=== PATIENT | male | born 1950 ===

== ENCOUNTER 2017-04-14 09:00 | Outpatient (CLI) | payer OTHER ==
[~2017-04-14 09:00] MED LIST: ARICEPT5 MG PO; ASA81 MG PO; CRESTOR20 MG PO; GABAPENTIN100 MG PO; LIPITOR20 MG PO; METAMUCIL0.52 G PO; ORPH100T PO; PERCOCET 5/3251 TAB PO; PROSCAR5 MG PO; VIT BALANCED B-1 TAB PO; XARELTO10 MG PO
== END 2017-04-14 09:15 | disposition home or self-care (01) ==
LOC: LAB 09:00
DX: R97.21 Rising PSA following treatment for malignant neoplasm of prostate (principal)

== ENCOUNTER 2017-05-10 14:27 | Emergency (ER) | payer OTHER ==
[~2017-05-10] VITALS: Ht 167.6 cm; Wt 63.5 kg
== END 2017-05-10 17:14 | disposition home or self-care (01) ==
LOC: ER 14:27
DX: R42 Dizziness and giddiness (principal)

== ENCOUNTER 2017-05-16 07:03 | Outpatient (CLI) | payer OTHER | END 2017-05-16 07:09 | disposition home or self-care (01) | LOC: LAB 07:03 | DX: R97.21 Rising PSA following treatment for malignant neoplasm of prostate (principal); R35.0 Frequency of micturition ==

== ENCOUNTER 2017-05-20 06:44 | Outpatient (CLI) | payer OTHER | END 2017-05-20 07:03 | disposition home or self-care (01) | LOC: LAB 06:44 | DX: D64.89 Other specified anemias (principal); E78.2 Mixed hyperlipidemia; E03.8 Other specified hypothyroidism; N39.0 Urinary tract infection, site not specified; K92.1 Melena; E55.9 Vitamin D deficiency, unspecified; M19.90 Unspecified osteoarthritis, unspecified site ==

== ENCOUNTER 2017-05-23 11:32 | Outpatient (CLI) | payer OTHER | END 2017-05-23 11:58 | disposition home or self-care (01) | LOC: LAB 11:32 | DX: D64.89 Other specified anemias (principal); E78.2 Mixed hyperlipidemia; E03.8 Other specified hypothyroidism; N39.0 Urinary tract infection, site not specified; K92.1 Melena; E55.9 Vitamin D deficiency, unspecified; M19.90 Unspecified osteoarthritis, unspecified site ==

== ENCOUNTER 2017-05-25 07:21 | Outpatient (CLI) | payer OTHER | END 2017-05-25 15:55 | disposition home or self-care (01) | LOC: NUCLEAR 07:21 | DX: M79.651 Pain in right thigh (principal) ==

== ENCOUNTER 2017-05-25 08:19 | Outpatient (CLI) | payer OTHER | END 2017-05-25 08:31 | disposition home or self-care (01) | LOC: TOM 08:19 | DX: M79.651 Pain in right thigh (principal); M79.652 Pain in left thigh ==

== ENCOUNTER → 2017-05-28 | Outpatient (CLI) | payer OTHER | END | disposition home or self-care (01) | LOC: PPH VACUNA 08:39 | DX: Z23 Encounter for immunization (principal) ==

== ENCOUNTER 2017-05-30 08:32 | Outpatient (CLI) | payer OTHER | END 2017-05-30 09:00 | disposition home or self-care (01) | LOC: NUCLEAR 08:32 | DX: M79.651 Pain in right thigh (principal) | CPT/HCPCS: 78802; A9556 ==

== ENCOUNTER 2017-12-07 13:37 | Outpatient (CLI) | payer OTHER | END 2017-12-07 17:11 | disposition home or self-care (01) | LOC: LAB 13:37 → MRI 12-12 10:15 | DX: M54.89 Other dorsalgia (principal); Z51.81 Encounter for therapeutic drug level monitoring ==

== ENCOUNTER 2017-12-12 09:30 | Outpatient (CLI) | payer OTHER | END 2017-12-12 13:52 | disposition home or self-care (01) | LOC: MRI 09:30 | DX: M54.89 Other dorsalgia (principal) | CPT/HCPCS: 72158 ==

== ENCOUNTER 2018-01-30 03:06 | Emergency (ER) | payer OTHER ==
[~2018-01-30] VITALS: Ht 167.6 cm; Wt 65.8 kg
[2018-01-30] MEDS ORDERED: NEURONTIN300 MG (03:27)
== END 2018-01-30 13:37 | disposition home or self-care (01) ==
LOC: ER 03:06 → CPU-OBS 03:12 → ER 13:37
DX: R07.89 Other chest pain (principal); R10.13 Epigastric pain
CPT/HCPCS: G0378; G0379; 93005

== ENCOUNTER 2018-05-09 09:53 | Outpatient (CLI) | payer OTHER ==
[~2018-05-09 09:53] MED LIST changes: +NEURONTIN300 MG
== END 2018-05-09 15:00 | disposition home or self-care (01) ==
LOC: RAD 09:53
DX: M54.2 Cervicalgia (principal)

== ENCOUNTER 2018-09-14 07:14 | Outpatient (CLI) | payer OTHER | END 2018-09-14 15:00 | disposition home or self-care (01) | LOC: LAB 07:14 | DX: D64.89 Other specified anemias (principal); E78.2 Mixed hyperlipidemia; E03.8 Other specified hypothyroidism; N40.0 Benign prostatic hyperplasia without lower urinary tract symptoms ==

== ENCOUNTER 2018-10-06 07:19 | Outpatient (CLI) | payer OTHER | END 2018-10-06 07:33 | disposition home or self-care (01) | LOC: LAB 07:19 | DX: R97.20 Elevated prostate specific antigen [PSA] (principal) ==

== ENCOUNTER 2018-12-20 08:20 | Emergency (ER) | payer OTHER ==
[~2018-12-20] VITALS: Ht 167.6 cm; Wt 64.0 kg
[2018-12-20] MEDS ORDERED: PROZAC10 MG (08:35)
[2018-12-20] MEDS ORDERED: METAMUCIL0.4 GM (08:35)
[2018-12-20] MEDS ORDERED: PNEU16DI2 IM (08:55)
[2018-12-20] MEDS ORDERED: DICLOFENAC SODI75 MG PO (08:55)
== END 2018-12-20 09:16 | disposition home or self-care (01) ==
LOC: ER 08:20
DX: M25.512 Pain in left shoulder (principal); M54.2 Cervicalgia; M54.89 Other dorsalgia

== ENCOUNTER 2018-12-21 08:49 | Outpatient (CLI) | payer OTHER ==
[~2018-12-21 08:49] MED LIST changes: +DICLOFENAC SODI75 MG PO; +METAMUCIL0.4 GM; +PNEU16DI2 IM; +PROZAC10 MG
== END 2018-12-21 16:00 | disposition home or self-care (01) ==
LOC: LAB 08:49
DX: D64.89 Other specified anemias (principal); E11.29 Type 2 diabetes mellitus with other diabetic kidney complication; E03.8 Other specified hypothyroidism; N39.0 Urinary tract infection, site not specified; Z12.11 Encounter for screening for malignant neoplasm of colon; E78.2 Mixed hyperlipidemia; R97.0 Elevated carcinoembryonic antigen [CEA]

== ENCOUNTER 2018-12-25 08:50 | Outpatient (CLI) | payer OTHER | END 2018-12-25 17:00 | disposition home or self-care (01) | LOC: MRI 08:50 | DX: M02.81 Other reactive arthropathies, shoulder (principal); Z98.1 Arthrodesis status | CPT/HCPCS: 72141; 73221 ==

== ENCOUNTER 2019-05-30 09:49 | Outpatient (CLI) | payer OTHER | END 2019-05-30 10:30 | disposition home or self-care (01) | LOC: RAD 09:49 | DX: M25.551 Pain in right hip (principal); M25.552 Pain in left hip ==

== ENCOUNTER → 2019-12-15 07:57 | Outpatient (CLI) | payer OTHER | END | disposition home or self-care (01) | LOC: LAB 07:57 | PROVIDERS: ATTEND General Practice | DX: I10 Essential (primary) hypertension (principal); R50.9 Fever, unspecified; M79.672 Pain in left foot ==

== ENCOUNTER → 2020-02-18 | Outpatient (CLI) | payer OTHER | END | disposition home or self-care (01) | LOC: MRI 10:46 | PROVIDERS: ATTEND Internal Medicine | DX: M43.17 Spondylolisthesis, lumbosacral region (principal) | CPT/HCPCS: 72148 ==

== ENCOUNTER 2020-06-05 11:04 | Outpatient (CLI) | payer OTHER | END 2020-06-05 16:30 | disposition home or self-care (01) | LOC: OFIC 805 11:04 | PROVIDERS: ATTEND Otolaryngology | DX: R42 Dizziness and giddiness (principal); H90.3 Sensorineural hearing loss, bilateral ==

== ENCOUNTER 2020-07-01 13:59 | Outpatient (CLI) | payer OTHER | END 2020-07-01 15:00 | disposition home or self-care (01) | LOC: LAB 13:59 | PROVIDERS: ATTEND Internal Medicine | DX: D64.89 Other specified anemias (principal); N39.0 Urinary tract infection, site not specified; N40.0 Benign prostatic hyperplasia without lower urinary tract symptoms ==

== ENCOUNTER → 2020-07-01 | Outpatient (CLI) | payer OTHER | END | disposition home or self-care (01) | LOC: TOM 13:59 | PROVIDERS: ATTEND Internal Medicine | DX: M25.511 Pain in right shoulder (principal); M25.512 Pain in left shoulder; M79.604 Pain in right leg ==

== ENCOUNTER → 2020-07-09 | Outpatient (CLI) | payer OTHER | END | disposition home or self-care (01) | LOC: MRI 08:38 | PROVIDERS: ATTEND Internal Medicine | DX: I63.50 Cerebral infarction due to unspecified occlusion or stenosis of unspecified cerebral artery (principal) | CPT/HCPCS: 70553 ==

== ENCOUNTER 2021-01-12 10:45 | Outpatient (CLI) | payer OTHER | END 2021-01-12 10:50 | disposition home or self-care (01) | LOC: PPH VACUNA 10:45 | PROVIDERS: ATTEND Emergency Medicine Pediatric Emergency Medicine | DX: Z23 Encounter for immunization (principal) ==

== ENCOUNTER 2021-05-09 07:29 | Outpatient (CLI) | payer OTHER | END 2021-05-09 07:32 | disposition home or self-care (01) | LOC: LAB 07:29 | PROVIDERS: ATTEND Internal Medicine | DX: D64.89 Other specified anemias (principal); E11.9 Type 2 diabetes mellitus without complications; E78.2 Mixed hyperlipidemia; E03.8 Other specified hypothyroidism; N39.0 Urinary tract infection, site not specified; E55.9 Vitamin D deficiency, unspecified; N40.0 Benign prostatic hyperplasia without lower urinary tract symptoms ==

== ENCOUNTER 2021-07-16 10:32 | Emergency (ER) | payer OTHER ==
[~2021-07-16] VITALS: Ht 170.2 cm; Wt 57.2 kg
== END 2021-07-16 15:26 | disposition home or self-care (01) ==
LOC: ER 10:32
DX: L03.116 Cellulitis of left lower limb (principal); Z20.822 Contact with and (suspected) exposure to COVID-19; Z88.0 Allergy status to penicillin; I10 Essential (primary) hypertension; M79.662 Pain in left lower leg; M79.661 Pain in right lower leg

== ENCOUNTER 2021-07-23 08:00 | Outpatient (CLI) | payer OTHER | END 2021-07-23 08:30 | disposition home or self-care (01) | LOC: PPH VACUNA 08:00 | PROVIDERS: ATTEND Emergency Medicine Pediatric Emergency Medicine | DX: Z23 Encounter for immunization (principal) ==

== ENCOUNTER → 2022-03-18 07:51 | Outpatient (CLI) | payer OTHER | END | disposition home or self-care (01) | LOC: LAB 07:51 | PROVIDERS: ATTEND Internal Medicine | DX: D64.9 Anemia, unspecified (principal); R73.9 Hyperglycemia, unspecified; E78.2 Mixed hyperlipidemia; E03.8 Other specified hypothyroidism; E55.9 Vitamin D deficiency, unspecified; Z12.11 Encounter for screening for malignant neoplasm of colon; N39.0 Urinary tract infection, site not specified; N40.0 Benign prostatic hyperplasia without lower urinary tract symptoms ==

== ENCOUNTER 2022-07-31 09:03 | Emergency (ER) | payer OTHER ==
[~2022-07-31] VITALS: Ht 165.1 cm; Wt 61.2 kg
[2022-07-31] MEDS ORDERED: NEURONTIN300 MG PO (09:29)
[2022-07-31] MEDS ORDERED: DUI500 PO (17:35)
== END 2022-07-31 17:40 | disposition home or self-care (01) ==
LOC: ER 09:03
DX: L03.115 Cellulitis of right lower limb (principal); I87.2 Venous insufficiency (chronic) (peripheral); Z88.0 Allergy status to penicillin

== ENCOUNTER 2022-08-13 07:20 | Outpatient (CLI) | payer OTHER ==
[~2022-08-13 07:20] MED LIST changes: +DUI500 PO; +NEURONTIN300 MG PO
== END 2022-08-13 08:13 | disposition home or self-care (01) ==
LOC: LAB 07:20
PROVIDERS: ATTEND Urology
DX: I11.9 Hypertensive heart disease without heart failure (principal); R97.21 Rising PSA following treatment for malignant neoplasm of prostate

== ENCOUNTER 2023-07-21 12:43 | Outpatient (CLI) | payer OTHER | END 2023-07-21 14:09 | disposition home or self-care (01) | LOC: RAD 12:43 | PROVIDERS: ATTEND Specialist | DX: J45.909 Unspecified asthma, uncomplicated (principal) ==

== ENCOUNTER → 2023-10-13 11:10 | Outpatient (CLI) | payer OTHER | END | disposition home or self-care (01) | LOC: NUCLEAR 10-06 11:00 | PROVIDERS: ATTEND Internal Medicine | DX: I50.1 Left ventricular failure, unspecified (principal); R00.2 Palpitations ==